=== PATIENT | male | born 1980 | race Caucasian/White ===

== ENCOUNTER 2020-04-24 12:03 | Outpatient (CLI) | payer MEDICARE, SELFPAY ==
[2020-04-24 12:48] VITALS: BMI 25.2
--- NOTE | 2020-04-24 12:49 | USCV_ITS ---
Stress Echo Eric Gilbert Age: 40 Gender: M : 1980 Exam Date: 04/24/2020 13:07 Ordering Phys: Unique Pineda DO Technologist: Teto Buchanan Exam Location: [facility] Indication: chest pain Rhythm: Sinus Patient History: chest pain Cardiac Medications: n/a Medications in past 24 hours: n/a Contrast: Stress Results Protocol: Franco Total dose(mL): Exercise Duration (min:sec): 6:00 METS: 7.0 Resting HR: 84 Resting BP: 164 / 85 Peak HR: 168 Peak BP: 166 / 104 Max Predicted HR: 178 94 % Max Predicted HR Target HR: 151 Double Product: 75066 Stress Summary: The patient's target heart rate was achieved The hemodynamic response to exercise was normal BP Response: Normal Reason for Termination: Test terminated after reaching target heart rate (85% max predicted) Cardiac Symptoms: ECG Analysis Resting ECG: Stress ECG: Arrhythmia: MEASUREMENTS (Male/Female) Normal Values FINDINGS Baseline images: Left ventricle ejection fraction appeared to be normal at 60%. There is no significant valvular abnormality. Peak exercise: Augmentation of left ventricular cavity appeared to be good. Left ventricle ejection fraction hyperdynamic. No new wall motion abnormality noted. Post exercise: No significant wall motion abnormality noted. CONCLUSIONS Echocardiographic portion of the stress echo is not suggestive of ischemia. EKG segment will be documented separately. Tom Dinh MD (Electronically Signed) Final Date: 24 April 2020 17:40 S
--- NOTE | 2020-04-24 13:02 | ECG_ITS ---
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 Baseline heart rate was [84] beats per minute. Baseline blood pressure was 164/85 millimeters of mercury. Target heart rate was 178 beats per minute. Maximum heart rate achieved was 168, which was 94 % of the target heart rate. Maximum blood pressure was 166/104 millimeters of mercury. Total exercise time was 6 minutes. Maximum METs achieved was 7.0, maximum VO2 was 24.5. The reason for ending the test was maximum effort achieved. The patient complained of shortness of during the stress test, which then resolved at the end of the test. ELECTROCARDIOGRAM: BASELINE: Showed sinus rhythm, normal axis, no significant ST-T changes at the baseline noted. [] EXERCISE: At the peak exercise level, [] No significant ST-T changes suggestive of ischemia noted. [] RECOVERY: During the recovery period, heart rate dropped appropriately. No significant ST-T changes in the recovery suggestive of ischemia noted. [] CONCLUSION: 1. Exercise capacity [poor]. 2. Heart rate response was [appropriate]. 3. Blood pressure response was [appropriate]. 4. Symptoms not suggestive of ischemia. 5. Electrocardiogram portion of the stress test was not suggestive of ischemia. 6. Nuclear scan will be documented separately. Please note that due to under achievement of METs and poor exercise capacity specificity and sensitivity of EKG portion of stress test will be low. Electronically Signed On 04-25-2020 18:16:55 SCUDDING INSPECTOR by GERMAN HULL [email or web address]
[2020-04-24 13:57] VITALS: BP 129/104; PULSE 88
== END 2020-04-24 12:04 | disposition home or self-care (01) ==
PROVIDERS: PCP Family Medicine; Visit Provider Family Medicine
DX: R07.89 Other chest pain (principal); Z91.89 Other specified personal risk factors, not elsewhere classified
CPT/HCPCS: 93350

== ENCOUNTER → 2020-05-31 09:42 | Outpatient (BNVA) | payer MEDICARE, SELFPAY | PROVIDERS: PCP Family Medicine; Referring Provider Family Medicine; Visit Provider Orthopaedic Surgery | DX: M54.9 Dorsalgia, unspecified (principal); M53.3 Sacrococcygeal disorders, not elsewhere classified; G89.29 Other chronic pain | CPT/HCPCS: 72110 ==

== ENCOUNTER → 2020-06-19 09:30 | Outpatient (BNVA) | payer MEDICARE, SELFPAY | PROVIDERS: PCP Family Medicine; Referring Provider Orthopaedic Surgery; Visit Provider Anesthesiology Pain Medicine | DX: M54.41 Lumbago with sciatica, right side (principal); M54.9 Dorsalgia, unspecified; M53.3 Sacrococcygeal disorders, not elsewhere classified; M43.26 Fusion of spine, lumbar region; M51.36 Other intervertebral disc degeneration, lumbar region | CPT/HCPCS: 99205 ==

== ENCOUNTER → 2020-06-26 13:38 | Outpatient (BNVA) | payer MEDICARE, SELFPAY | PROVIDERS: PCP Family Medicine; Visit Provider Anesthesiology Pain Medicine | DX: M54.16 Radiculopathy, lumbar region (principal); M54.9 Dorsalgia, unspecified; Z79.891 Long term (current) use of opiate analgesic | CPT/HCPCS: 64483; 64484; J1100; J3490 ==

== ENCOUNTER → 2020-07-10 09:19 | Outpatient (BNVA) | payer MEDICARE, SELFPAY | PROVIDERS: PCP Family Medicine; Visit Provider Anesthesiology Pain Medicine | DX: M54.9 Dorsalgia, unspecified (principal); M53.3 Sacrococcygeal disorders, not elsewhere classified; M43.26 Fusion of spine, lumbar region; M51.36 Other intervertebral disc degeneration, lumbar region; M54.16 Radiculopathy, lumbar region; Z79.891 Long term (current) use of opiate analgesic | CPT/HCPCS: 99214 ==

== ENCOUNTER → 2020-07-22 13:42 | Outpatient (BNVA) | payer MEDICARE, SELFPAY | PROVIDERS: PCP Family Medicine; Visit Provider Anesthesiology Pain Medicine | DX: M53.3 Sacrococcygeal disorders, not elsewhere classified (principal); M54.16 Radiculopathy, lumbar region; M54.9 Dorsalgia, unspecified | CPT/HCPCS: G0260; J1030; J3490 ==

== ENCOUNTER → 2020-08-05 09:16 | Outpatient (BNVA) | payer MEDICARE, SELFPAY | PROVIDERS: PCP Family Medicine; Visit Provider Anesthesiology Pain Medicine | DX: M54.9 Dorsalgia, unspecified (principal); M53.3 Sacrococcygeal disorders, not elsewhere classified; M43.26 Fusion of spine, lumbar region; M51.36 Other intervertebral disc degeneration, lumbar region; M54.16 Radiculopathy, lumbar region; M25.551 Pain in right hip; Z79.891 Long term (current) use of opiate analgesic | CPT/HCPCS: 99213 ==

== ENCOUNTER 2020-09-17 08:11 | Emergency (ER) | payer MEDICARE, SELFPAY ==
[2020-09-17 08:18] VITALS: BP 119/76; PULSE 98; RESP 20; TEMP 36.8; O2SAT 98; BMI 25.8
--- NOTE | 2020-09-17 08:35 | CT_ITS ---
WS: [id number] CT LUMBAR SPINE TECHNIQUE: Noncontrast CT of the lumbar spine with coronal and sagittal reformatted images. CLINICAL INFORMATION: back pain COMPARISON: CT 7 DLP: 2003.[address] scans at [facility] use at least one of these dose optimization techniques: automat ed exposure control; mA and/or kV adjustment per patient size (includes targeted exams where dose is matched to clinical indication); or iterative reconstruction. FINDINGS: Mild lumbar curve. No acute compression. Prior postoperative changes pedicle screw fixation L5-S1 wit h interconnecting rods. No evidence of hardware loosening. Associated laminectomy defects. Large cent ral disc protrusion L4-5 progressed from the prior examination. L1-L2: Normal. L2-L3: Normal. L3-L4: No significant disc bulging. Moderate facet arthropathy. Spinal canal and foramen are patent. L4-L5: Large central disc protrusion eccentric to the right with severe central canal stenosis. Impin gement traversing L5 nerve roots bilaterally. Disc material measures 8 x 12 mm. Mild left foraminal n arrowing. Right foramen is patent. Moderate facet arthropathy. L5-S1: Postoperative changes pedicle screw fixation with interbody fusion. Spinal canal and foramen a ppear patent. Granulation tissue in the left subarticular recess. Visualized pelvic bony structures: Normal. Paravertebral soft tissues: Normal. CT/CT lumbar spine wo con* [id number] IMPRESSION: 1. Large central disc protrusion L4-5 new from previous with severe central ca nal stenosis and impingement traversing L5 nerve roots bilaterally right greate r than left. 2. No other significant changes from previous.
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
[2020-09-17 10:01] VITALS: RESP 18
[2020-09-17] MEDS: morphine 4 mg/mL SDV 1 mL IVP (10:01)
[2020-09-17] MEDS: orphenadrine 30 mg/mL Inj 2 mL 60 MG IM (10:02)
--- NOTE | 2020-09-17 11:08 | DCPLANNER ---
project manager retail was asked to schedule a follow up appointment for patient with Dr. White at ortho. project manager retail called the ortho clinic, spoke with Yany, gave clinic patients information. project manager retail was told that patients information will be printed and reviewed. Clinic will call patient with appointment information.
[2020-09-17 12:33] VITALS: BP 118/72; PULSE 92; RESP 18; O2SAT 98
--- NOTE | 2020-09-19 11:05 | DCPLANNER ---
Patient has a follow up appointment scheduled for , September 19, 2020 at 1:[address] White at [facility]. Clinic will call patient with appointment information.
--- NOTE | 2020-10-28 07:56 | DCPLANNER ---
Patient has a follow up appointment scheduled for 09.19.[address] White at [facility] - patient did attend appointment.
== END 2020-09-17 10:50 | disposition home or self-care (01) ==
PROVIDERS: Emergency Provider Family Medicine; PCP Family Medicine
DX: M54.16 Radiculopathy, lumbar region (principal); M51.26 Other intervertebral disc displacement, lumbar region
CPT/HCPCS: 72131; 96372; 96374; 96375; 99283; J2270; J2360; J2930